=== PATIENT | male | born 1975 | race Caucasian/White ===

== ENCOUNTER 2018-06-25 12:13 | Observation (INO) ==
[2018-06-25 14:10] LABS: Bilirubin,Urine Small (Negative); Blood,Urine Negative (Negative); Clarity,Urine Clear (Clear); Color,Urine Dark Yellow (Yellow); Glucose,Urine (UA) Normal (Normal); Ketones,Urine Trace mg/dL (Negative); Leukocyte Esterase,Urine Negative (Negative); Nitrite,Urine Negative (Negative); PH,Urine 5.5 pH Units (5.0-8.0); Protein,Urine Trace mg/dL (Neg-Trace); Specific Gravity,Urine 1.027 (1.010-1.025); Urobilinogen,Urine Normal (Normal)
[2018-06-25 14:38] LABS: Basophils % 0.2 %; Eosinophils # 0.2 K/mcL (0.0-0.6); Eosinophils % 1.8 %; Hematocrit 48.9 % (37.5-50.1); Hemoglobin 16.6 g/dL (12.9-16.9); Immature Granulocytes % 0.1 % (0-4); Lymphocytes % 33.1 %; Mean Corpuscular HGB Conc 33.9 g/dL (31.6-35.5); Mean Corpuscular Hemoglobin 29.6 pg (28.0-33.3); Mean Corpuscular Volume 87.3 fL (83.0-100.0); Mean Platelet Volume 9.8 fL (9.4-12.4); Monocytes # 0.5 K/mcL (0.0-1.3); Neutrophils # 5.3 K/mcL (1.6-8.9); Platelet Count 286 K/mcL (140-400); Red Cell Distribution Width 13.1 % (11.5-14.5); Segmented Neutrophils % 59.8 %
--- NOTE | 2018-06-25 14:44 | Emergency Department Note ---
Disposition Clinical Impression: Acute appendicitis Qualifiers: Acute appendicitis type: with localized peritonitis Appendicitis gangrene presence: without gangrene Appendicitis perforation presence: without perforation Appendicitis abscess presence: without abscess Qualified Code(s): K35.30 - Acute appendicitis with localized peritonitis, without perforation or gangrene Disposition: Admitted As Inpatient Condition: Good Abdominal Pain HPI - General Chief Complaint: ED Abdominal Pain Stated Complaint: RLQ Pain Time Seen by Provider: 06/25/18 13:47 Source: patient Mode of arrival: private vehicle Limitations: no limitations Nursing Notes Reviewed: Yes Vital Signs Reviewed: Yes - History of Present Illness HPI Narrative: 43-year-old male presents to the ER with a complaint of abdominal pain. Reports the pain started abruptly today. It is in his right lower quadrant. Feels like it goes over to the left. Denies any nausea vomiting or diarrhea. No dysuria, hematuria or discharge. No pain into the testicles. States that he has had this roughly 5 times in the last 2 years and usually goes away around 12 hours later with some ibuprofen. He also goes on to say that he had chest pain several weeks ago. There was a pain in the center of his chest on away after an hour. He also goes on to say that he had dizziness a few days ago that resolved with any felt today when he was moving around here. He also reports pain in his left flank as well as concerns that he might have liver issues because his brother has hepatitis C. No other complaints. Pt Subjective Complaint: abdominal pain Onset (ago): hour(s) Location: RLQ Pain Scale: 8 Migration to: no migration Improves with: nothing Worsens with: nothing Context: history of similar episodes Associated symptoms: Denies: nausea, vomiting, diarrhea, fever, dysuria, hematuria Treatments prior to arrival: none - Related Data Previous Rx's Medication Instructions Recorded Cyclobenzaprine [Flexeril] 10 mg PO TID PRN #14 tablet 05/08/16 Allergies Allergy/AdvReac Type Severity Reaction Status Date / Time codeine AdvReac Vomiting Verified 05/08/16 19:46 All systems ED: reviewed and negative except as stated. Constitutional: Reports: fever, chills Cardiovascular: Denies: chest pain Gastrointestinal: Reports: abdominal pain. Denies: nausea, vomiting, diarrhea Genitourinary: Denies: dysuria, hematuria, discharge Abdominal Pain PMH - Past Medical History Medical history: Reports: diabetes, hypertension Psychiatric history: Reports: no psych history - Social History Smoking status: Never smoker Alcohol use: Reports: occasionally Drug use: Reports: none Physical Exam - General Limitations: no limitations General appearance: alert, in no apparent distress - Head Head exam: atraumatic, normocephalic, normal inspection - Eye Eye exam: Present: normal appearance - ENT ENT exam: normal exam - Neck Neck exam: Present: normal inspection - Chest Chest inspection: Present: normal inspection, symmetric chest wall rise - Respiratory Respiratory exam: Present: normal lung sounds bilaterally - Cardiovascular Cardiovascular exam: Present: regular rate, normal rhythm, normal heart sounds - Abdominal Exam Abdominal exam: Present: soft, tenderness (Moderate right lower quadrant tenderness). Absent: distention, guarding, rigidity - Extremities Exam Extremities exam: Present: normal inspection, full ROM - Expanded Upper Extremity Exam Shoulder exam: Present: normal inspection, full ROM Arm exam: Present: normal inspection, full ROM Elbow exam: Present: normal inspection, full ROM Forearm/Wrist exam: Present: normal inspection, full ROM Hand exam: Present: normal inspection, full ROM - Expanded Lower Extremity Exam Hip/Pelvis exam: Present: normal inspection, full ROM Upper leg exam: Present: normal inspection, full ROM Knee exam: Present: normal inspection, full ROM Lower leg exam: Present: normal inspection, full ROM Ankle exam: Present: normal inspection, full ROM Foot/toe exam: Present: normal inspection, full ROM - Skin Skin exam: Present: warm, dry Course Course Narrative: Patient seen and examined. Vital signs reviewed. He has multiple complaints here. Plan for CT imaging, labs, EKG, urinalysis. - Reevaluation(s) Reevaluation #1: Discussed results of imaging and labs with patient. Plan to discuss with surgery. Last ate at 11:00. To remain NPO. - Consultations Consultation #1: Case discussed with Dr. Garduno with general surgery. Discussed the patient's history, imaging. Patient is accepted to her service with plans to go to the operating room. Vital Signs Temperature 98.8 F 06/25/18 13:13 Pulse Rate 98 06/25/18 13:13 Respiratory Rate 18 06/25/18 13:13 Blood Pressure 179/106 06/25/18 13:13 O2 Sat by Pulse Oximetry 100 06/25/18 13:13 Temperature 98.8 F 06/25/18 13:13 Pulse Rate 94 06/25/18 15:33 Respiratory Rate 14 06/25/18 15:33 Blood Pressure 143/87 06/25/18 15:33 O2 Sat by Pulse Oximetry 100 06/25/18 15:33 Oxygen Delivery Oxygen Delivery Room Air Abdominal Pain - MDM Narrative Medical decision making narrative: 43-year-old male presenting with right lower quadrant pain found have acute appendicitis by CT read. Labs reviewed and grossly unremarkable. His EKG is sinus without ischemic or arrhythmic findings. Patient given IV fluids as well as Zofran. Case discussed with general surgery. The patient is admitted to their service for definitive management. - Lab Data Lab results reviewed: Yes I reviewed the patient's lab results. Result diagrams: 06/25/18 13:17 06/25/18 13:17 Lab Results 06/25/18 06/25/18 06/25/18 Range/Units 13:17 13:17 13:55 WBC 8.9 (4.3-11.1) K/mcL RBC 5.60 H (4.19-5.50) M/mcL Hgb 16.6 (12.9-16.9) g/dL Hct 48.9 (37.5-50.1) % MCV 87.3 (83.0-100.0) fL MCH 29.6 (28.0-33.3) pg MCHC 33.9 (31.6-35.5) g/dL RDW 13.1 (11.5-14.5) % Plt Count 286 (140-400) K/mcL MPV 9.8 (9.4-12.4) fL Immature Gran % 0.1 (0-4) % Seg Neutrophils % 59.8 % Lymphocytes % 33.1 % Monocytes % 5.0 % Eosinophils % 1.8 % Basophils % 0.2 % Neutrophils # 5.3 (1.6-8.9) K/mcL Lymphocytes # 3.0 (0.6-4.6) K/mcL Monocytes # 0.5 (0.0-1.3) K/mcL Eosinophils # 0.2 (0.0-0.6) K/mcL Basophils # 0.0 (0.0-0.2) K/mcL PT (9.4-12.1) Seconds INR Sodium 136 (136-145) mEq/L Potassium 3.3 L (3.5-5.1) mEq/L Chloride 100 (98-107) mEq/L Carbon Dioxide 30 H (23-29) mEq/L BUN 14 (6-20) mg/dL Creatinine 1.03 (0.70-1.30) mg/dL Est GFR ( Amer) > 60 (> 60) Est GFR (Non-Af Amer) > 60 (> 60) BUN/Creatinine Ratio 14 (6-26) Glucose 121 H (70-105) mg/dL Calculated Osmolality 284 (280-300) Calcium 9.7 (8.6-10.3) mg/dL Total Bilirubin 0.5 (0.3-1.0) mg/dL Direct Bilirubin 0.1 (0.0-0.2) mg/dL Indirect Bilirubin 0.4 (0.0-1.2) mg/dL AST 17 (13-39) Units/L ALT 27 (7-52) Units/L Alkaline Phosphatase 61 (34-104) Units/L Serum Total Protein 7.6 (6.4-8.9) g/dL Albumin 4.1 (3.5-5.7) g/dL Globulin 3.5 (2.4-3.5) g/dL Albumin/Globulin Ratio 1.2 (1.1-2.2) Amylase 440 H (29-103) Units/L Lipase 21 (11-82) Units/L Urine Color Dark Yellow (Yellow) Urine Clarity Clear (Clear) Urine pH 5.5 (5.0-8.0) pH Units Ur Specific [place] 1.027 H (1.010-1.025) Urine Protein Trace (Neg-Trace) mg/dL Urine Glucose (UA) Normal (Normal) mg/dL Urine Ketones Trace H (Negative) mg/dL Urine Blood Negative (Negative) Urine Nitrite Negative (Negative) Urine Bilirubin Small H (Negative) Urine Urobilinogen Normal (Normal) mg/dL Ur Leukocyte Esterase Negative (Negative) Ur Culture Indicated? NO (NO) 06/25/18 Range/Units Unknown WBC (4.3-11.1) K/mcL RBC (4.19-5.50) M/mcL Hgb (12.9-16.9) g/dL Hct (37.5-50.1) % MCV (83.0-100.0) fL MCH (28.0-33.3) pg MCHC (31.6-35.5) g/dL RDW (11.5-14.5) % Plt Count (140-400) K/mcL MPV (9.4-12.4) fL Immature Gran % (0-4) % Seg Neutrophils % % Lymphocytes % % Monocytes % % Eosinophils % % Basophils % % Neutrophils # (1.6-8.9) K/mcL Lymphocytes # (0.6-4.6) K/mcL Monocytes # (0.0-1.3) K/mcL Eosinophils # (0.0-0.6) K/mcL Basophils # (0.0-0.2) K/mcL PT 12.9 H (9.4-12.1) Seconds INR 1.1 Sodium (136-145) mEq/L Potassium (3.5-5.1) mEq/L Chloride (98-107) mEq/L Carbon Dioxide (23-29) mEq/L BUN (6-20) mg/dL Creatinine (0.70-1.30) mg/dL Est GFR ( Amer) (> 60) Est GFR (Non-Af Amer) (> 60) BUN/Creatinine Ratio (6-26) Glucose (70-105) mg/dL Calculated Osmolality (280-300) Calcium (8.6-10.3) mg/dL Total Bilirubin (0.3-1.0) mg/dL Direct Bilirubin (0.0-0.2) mg/dL Indirect Bilirubin (0.0-1.2) mg/dL AST (13-39) Units/L ALT (7-52) Units/L Alkaline Phosphatase (34-104) Units/L Serum Total Protein (6.4-8.9) g/dL Albumin (3.5-5.7) g/dL Globulin (2.4-3.5) g/dL Albumin/Globulin Ratio (1.1-2.2) Amylase (29-103) Units/L Lipase (11-82) Units/L Urine Color (Yellow) Urine Clarity (Clear) Urine pH (5.0-8.0) pH Units Ur Specific [place] (1.010-1.025) Urine Protein (Neg-Trace) mg/dL Urine Glucose (UA) (Normal) mg/dL Urine Ketones (Negative) mg/dL Urine Blood (Negative) Urine Nitrite (Negative) Urine Bilirubin (Negative) Urine Urobilinogen (Normal) mg/dL Ur Leukocyte Esterase (Negative) Ur Culture Indicated? (NO) - Radiology Data Radiology results reviewed: Yes I reviewed the patient's radiology results. Abdomen/Pelvis CT 06/25/18 14:35 IMPRESSION: 1. Suboptimal evaluation without the administration of IV contrast, however the constellation of findings is very suspicious; probable acute appendicitis. 2. Shotty lymph nodes in the abdomen are very likely reactive. 3. Hepatic steatosis with mild hepatomegaly. D/ / Navjot Kumar / Navjot Kumar Interpreting Provider: Navjot Kumar - EKG Data EKG attestation: Yes I reviewed and interpreted this EKG. EKG results narrative: EKG demonstrates sinus rhythm with a rate of 97 beats or minute. Normal axis. Normal intervals. Normal R-wave progression. No gross ST elevations or depressions. No acute ischemic findings. Attestation Statement - Attestation Attestation: Resident Attestation: I examined this patient and my medical decision making was reviewed with the Resident Physician. I agree with the documented findings, disposition and treatment plan as described except to the extent set forth below. We independently had [id number] contact with the patient. Patient presenting for evaluation of right-sided abdominal pain. Patient states previous symptoms in the past. Overall on exam the patient has significant right lower quadrant tenderness with associated positive rising sign. Patient undergoing further evaluation for appendicitis. Noncontrast CT scan secondary to rather acute onset and previous episodes in the past. Overall picture was not initially clear. CT scan results returned concerning for early appendicitis. Surgery contacted. Patient admitted to the surgery service.
[2018-06-25] MEDS ORDERED: Ketorolac 15 MG/ML VIAL IVP ONE (14:49)
[2018-06-25 14:57] LABS: Alanine Aminotransferase 27 Units/L (7-52); Albumin 4.1 g/dL (3.5-5.7); Albumin/Globulin Ratio 1.2 (1.1-2.2); Alkaline Phosphatase 61 Units/L (34-104); Amylase 440 Units/L (29-103); Aspartate Amino Transferase 17 Units/L (13-39); BUN/Creatinine Ratio 14 (6-26); Bilirubin,Direct 0.1 mg/dL (0.0-0.2); Bilirubin,Indirect 0.4 mg/dL (0.0-1.2); Bilirubin,Total 0.5 mg/dL (0.3-1.0); Blood Urea Nitrogen 14 mg/dL (6-20); Calcium 9.7 mg/dL (8.6-10.3); Carbon Dioxide 30 mEq/L (23-29); Chloride 100 mEq/L (98-107); Globulin 3.5 g/dL (2.4-3.5); Glucose 121 mg/dL (70-105); Lipase 21 Units/L (11-82); Osmolality,Calculated 284 (280-300); Potassium 3.3 mEq/L (3.5-5.1); Sodium 136 mEq/L (136-145); Total Protein 7.6 g/dL (6.4-8.9); eGFR For Non-African Americans > 60 (> 60)
[2018-06-25] MEDS ORDERED: Piperacillin/Tazobactam 3.375 GM in Water for inj. (sterile) 20 ML 20 ML IVP ONE (16:08)
[2018-06-25] MEDS ORDERED: 0.9 % Sodium Chloride 1,000 ML IVC ONE (16:21)
[2018-06-25 16:36] LABS: INR 1.1; Prothrombin Time 12.9 Seconds (9.4-12.1)
--- NOTE | 2018-06-25 17:08 | General Surg History&Physical ---
Date of Encounter: 06/25/18 Time of Encounter: 17:04 Assessment and Plan (1) Acute appendicitis Current Visit: Yes Status: Acute The assessment and plan as outlined above was discussed with the patient and/or family members who expressed understanding and agreement. All questions were answered. Discussed with patient that given his symptoms, CT scan and PE findings he has acute appendicitis. Discussed I do not recommend him going home and returning tomorrow. Discussed risk of perforation, abscess, sepsis. Will plan laparoscopic appendectomy, possible open ,risks and benefits discussed and he wishes to proceed. npo pain control ivf hydration antibiotics prn antiemetics Qualifiers: Acute appendicitis type: with localized peritonitis Appendicitis gangrene presence: without gangrene Appendicitis perforation presence: without perforation Appendicitis abscess presence: without abscess Qualified Code(s): K35.30 - Acute appendicitis with localized peritonitis, without perforation or gangrene History of Present Illness Chief complaint: RLQ pain HPI: Mr. Heard is a 43 year old male who comes in with complaints of RLQ pain that started in the last 24 hrs. Patient states he has had the exact same pain symptoms 6-7 times over the last 2 years. He states the pain usually starts out as a terrible RLQ pain, after several hours goes away/gets better. Then he is sore over the next 10 hours until it resolves. He states the reason he came to the ED today is because he just wanted to know finally what is causing the pain, and yes it was a little worse this time. He took ibprofen for the pain and it has helped. No nausea or vomiting. No diarrhea. Denies dysuria. Is having LLQ pain as well, just not as severe as the RLQ pain. Denies fevers or chills. No fmh crohns, no melena or hematochezia. States he would like to go home and come back tomorrow. Previous umbilical hernia repair with mesh Past Med Surg Social Fam HX - Past Medical History Source: patient Medical history: diabetes, hypertension Psychiatric history: anxiety, depression - Past Surgical History Surgical History: herniorrhaphy (umbilical with mesh, open), other (Lt ear myringotomy tube) - Social History Smoking Status: Never smoker Smokeless Tobacco Status: No Alcohol use: heavy Drug use: none Occupational status: unemployed Current living situation: Home - Independent Activity Level: Independent ambulation Medications and Allergies Cyclobenzaprine [Flexeril] 10 mg PO TID PRN #14 tablet 05/08/16 [Rx] Allergy/AdvReac Type Severity Reaction Status Date / Time codeine AdvReac Vomiting Verified 05/08/16 19:46 Review of Systems All systems PM: reviewed and no additional remarkable complaints except as stated All systems PM: The remainder of the systems were reviewed and are negative General Surgery Exam Initial Vital Signs Temp Pulse Resp BP Pulse Ox 98.8 F 98 18 179/106 100 06/25/18 13:13 06/25/18 13:13 06/25/18 13:13 06/25/18 13:13 06/25/18 13:13 - General physical appearance well developed, well nourished, no distress - Eyes PERRL, normal ocular movement - ENT normal mucosa, normocephalic - Neck trachea midline - Respiratory normal expansion, clear to auscultation - Cardiovascular Cardiovascular exam: Present: RRR - Abdomen Abdomen general surgery: Present: bowel sounds present, soft, tender. Absent: distended, guarding, rebound Abdominal Tenderness: Present: RLQ - Integumentary Integumentary general surgery: Present: warm and dry - Neurologic Present: CN 2-12 grossly intact - Musculoskeletal Present: normal posture - Psychiatric Psychiatric general surgery: Present: A&Ox3, speech is normal Results - Labs 06/25/18 13:17 06/25/18 13:17 Abnormal lab results RBC 5.60 M/mcL (4.19-5.50) H 06/25/18 13:17 PT 12.9 Seconds (9.4-12.1) H 06/25/18 Unknown Potassium 3.3 mEq/L (3.5-5.1) L 06/25/18 13:17 Carbon Dioxide 30 mEq/L (23-29) H 06/25/18 13:17 Glucose 121 mg/dL (70-105) H 06/25/18 13:17 Amylase 440 Units/L (29-103) H 06/25/18 13:17 Ur Specific [place] 1.027 (1.010-1.025) H 06/25/18 13:55 Urine Ketones Trace mg/dL (Negative) H 06/25/18 13:55 Urine Bilirubin Small (Negative) H 06/25/18 13:55 Diabetes panel 06/25/18 Range/Units 13:17 Sodium 136 (136-145) mEq/L Potassium 3.3 L (3.5-5.1) mEq/L Chloride 100 (98-107) mEq/L Carbon Dioxide 30 H (23-29) mEq/L BUN 14 (6-20) mg/dL Creatinine 1.03 (0.70-1.30) mg/dL Glucose 121 H (70-105) mg/dL Calcium 9.7 (8.6-10.3) mg/dL AST 17 (13-39) Units/L ALT 27 (7-52) Units/L Alkaline Phosphatase 61 (34-104) Units/L Albumin 4.1 (3.5-5.7) g/dL Calcium panel 06/25/18 Range/Units 13:17 Calcium 9.7 (8.6-10.3) mg/dL Albumin 4.1 (3.5-5.7) g/dL Pituitary panel 06/25/18 Range/Units 13:17 Sodium 136 (136-145) mEq/L Potassium 3.3 L (3.5-5.1) mEq/L Chloride 100 (98-107) mEq/L Carbon Dioxide 30 H (23-29) mEq/L BUN 14 (6-20) mg/dL Creatinine 1.03 (0.70-1.30) mg/dL Glucose 121 H (70-105) mg/dL Calcium 9.7 (8.6-10.3) mg/dL Adrenal panel 06/25/18 Range/Units 13:17 Sodium 136 (136-145) mEq/L Potassium 3.3 L (3.5-5.1) mEq/L Chloride 100 (98-107) mEq/L Carbon Dioxide 30 H (23-29) mEq/L BUN 14 (6-20) mg/dL Creatinine 1.03 (0.70-1.30) mg/dL Glucose 121 H (70-105) mg/dL Calcium 9.7 (8.6-10.3) mg/dL Total Bilirubin 0.5 (0.3-1.0) mg/dL AST 17 (13-39) Units/L ALT 27 (7-52) Units/L Alkaline Phosphatase 61 (34-104) Units/L Albumin 4.1 (3.5-5.7) g/dL All other labs normal. - Imaging CT scan - abdomen: report reviewed, image reviewed CT scan - pelvis: report reviewed, image reviewed
[2018-06-25] MEDS ORDERED: Ondansetron 4 MG/2 ML VIAL ONE (17:13)
[2018-06-25] MEDS ORDERED: Lidocaine -MPF 2% 2 ML VIAL ONE (17:13)
[2018-06-25] MEDS ORDERED: *HR* Propofol 200 MG/20 ML VIAL IVP ONE ×2 (17:13→18:31)
[2018-06-25] MEDS ORDERED: *HR* Succinylcholine 200 MG/10 ML VIAL IVP ONE (17:13)
[2018-06-25] MEDS ORDERED: *HR* FentaNYL (PF) 100 MCG/2 ML VIAL ONE (17:13)
[2018-06-25] MEDS ORDERED: *HR* Rocuronium Bromide 50 MG/5 ML VIAL ONE (17:16)
[2018-06-25] MEDS ORDERED: Dexamethasone 4 MG/ML VIAL ONE (17:17)
--- NOTE | 2018-06-25 17:18 | Anesthesia Evaluation PreOp ---
Date of Encounter: 06/25/18 Time of Encounter: 17:34 - Past History Planned Operation: Laparoscopic Appendectomy Cardiac History: HTN (not being medically treated) Pulmonary History: Denies Any Significant HX CARDIAC NURSE History: Denies Any Significant HX Other Medical History: Diabetes Type II (not being medically treated), GERD, Other (anxiety) Anesthesia History: No Prior Anesthetic Complications, Past Anesthesia Alcohol Use: heavy Drug use: none Medications and Allergies Cyclobenzaprine [Flexeril] 10 mg PO TID PRN #14 tablet 05/08/16 [Rx] Allergy/AdvReac Type Severity Reaction Status Date / Time codeine AdvReac Vomiting Verified 05/08/16 19:46 - Meds/Allergy Pre-op Review Medications Reviewed: Yes Allergies Reviewed: Yes Beta Blockers on Current Med List: No Anesthesia Results - Labs 06/25/18 13:17 06/25/18 13:17 Anesthesia Exam Vital Signs/O2 Sat, Most Current Temp Pulse Resp BP Pulse Ox 98.8 F 94 14 143/87 100 06/25/18 13:13 06/25/18 15:33 06/25/18 15:33 06/25/18 15:33 06/25/18 15:33 Height: 5'10"/1.78m Weight: 215 lbs/97.5 kg NPO (# of Hours): 6 Pain Scale: 7 Pain Scale Used: Numeric (1 - 10) - HEENT Pupil (Motor): EOMI Mallampati: II Teeth: Normal Oral Opening: Greater than 3 - CARDIAC NURSE LOC: Oriented CARDIAC NURSE Motor: Normal RUE, Normal LUE, Normal RLE, Normal LLE, Normal Face CARDIAC NURSE Sensory: Normal: RUE, LUE, RLE, LLE, Face - Cardiac Rhythm: Regular Murmur: None - Pulmonary Breath Sounds: bilateral Clear Respiratory Effort: Symmetrical Anesthesia Assess/Plan ASA Score: 3, E Level of consciousness: Cooperative, Oriented, Tranquil Anesthetic Plan: General Monitoring Plan: Standard Monitors Recovery Plan: PACU
[2018-06-25] MEDS ORDERED: KETAMINE HCL 50 MG/ML SYRINGE IV ONE (17:19)
[2018-06-25] MEDS ORDERED: Lidocaine TOPICAL Soln 50 ML BOTTLE ONE (17:19)
[2018-06-25] MEDS ORDERED: *HR* Midazolam HCl 5 MG/5 ML VIAL IVP ONE (17:21)
--- NOTE | 2018-06-25 17:27 | Operative Note ---
Date of procedure: 06/25/18 Pre-op diagnosis: acute appendicitis Post-op diagnosis: same Complications: none immediate Anesthesia: DYLLAN Co-Surgeon: Guerita Garduno Was there an human resources office assistant present: No Estimated blood loss (cc): 5 Specimen: appendix Condition: stable Disposition: PACU Procedure in Detail: The patient was brought into the operating suite and placed supine on the operating table. Sign-in was performed and everyone was in agreement. Anesthesia was induced and patient was endotracheally intubated by anesthesia without incident. An OG tube was placed by anesthesia. The abdomen was prepped and draped in the usual sterile fashion. A timeout was performed and again everyone was in agreement. A stab incision in the left upper quadrant was made with 11 blade and a Veress needle was placed through this and water drop test confirmed placement. Due to patient's previous umbilical hernia repair with mesh in incision several centimeters superior through the skin and the subcutaneous tissues made with 11 blade. We entered the abdomen at the site with the 5 mm 0 degree laparoscope on a 5 mm XL trocar. The area under entry was visualized and there was no bleeding and no apparent bowel injury. We placed a suprapubic 5 mm port under direct visualization after first incising the skin with an 11 blade. The laparoscope was placed through this and we exchanged the supraumbilical port for a 12 mm port under direct visualization. We then placed another 5 mm port in the left lower quadrant position under direct visualization after first incising the skin with an 11 blade. The patient was placed in slight Trendelenburg left side down position. The cecum was located as was the appendix. There was infected purulent fluid/pus around the cecum. The appendix was grasped and retracted anteriorly and caudally with a laparoscopic [place]. A [place] was used to dissect between the mesoappendix and the appendix at the base of the cecum. The mesoappendix was transected with a laparoscopic flex-ex ETS stapler using a white load. The appendix was trans ected at the base of the cecum with the same stapler utilizing a white load. The appendix was placed in a laparoscopic Endo Catch bag and removed via the supraumbilical incision site. Both staple lines were evaluated and there was no bleeding and both staple lines were intact. The RLQ and pelvis was irrigated with sterile saline which was then suctioned free from the abdomen. The insufflation was suctioned free from the abdomen and all trochars removed. We closed the abdominal wall at the supraumbilical incision site with an 0 Vicryl [id number] stitch. A 30 cc of 0.5% Marcaine was injected subcutaneously at the 3 port sites. The skin at the two 5 mm port sites was closed with 4-0 Monocryl interrupted subcuticular stitches. The skin at the supraumbilical incision site was closed with a 4-0 Monocryl running subcuticular stitch. Steri-Strips were applied to the wounds. The patient was extubated in the OR and tolerated the procedure well and was taken to PACU after all lap and instrument counts were correct at the end of the case.
[2018-06-25] MEDS ORDERED: *HR* HYDROmorphone (PF) 1 MG/ML SYRINGE IVP PRN (17:36)
[2018-06-25] MEDS ORDERED: *HR* OxyCODONE Immed Rel 5 MG TABLET PO PRN (17:36)
[2018-06-25] MEDS ORDERED: Acetaminophen IV 1,000 MG/100 ML INFUS..BTL ONE (17:38)
[2018-06-25] MEDS ORDERED: *HR* HYDROMORPHONE 2 MG/ML VIAL ONE (18:24)
[2018-06-25] MEDS ORDERED: Neostigmine Methylsulfate 3 MG/3 ML SYRINGE ONE (18:28)
--- NOTE | 2018-06-25 19:43 | Anesthesia Evaluation Post Op ---
Date of Encounter: 06/25/18 Time of Encounter: 19:40 - Vital Signs Vital Signs: Vital Signs/O2 Sat, Most Current Temp Pulse Resp BP Pulse Ox 100.7 F H 104 20 147/91 96 06/25/18 19:34 06/25/18 19:34 06/25/18 19:34 06/25/18 19:34 06/25/18 19:34 - Lungs Lungs: Clear Ascult./Percussion - Airway Airway: Non-obstructed - Cardiovascular Regular Rate, Baseline Rhythm - Mental Status Mental Status: Alert & Oriented, Answers Appropriately - Pain Pain Scale: 0 Pain Scale used: Numeric (1 - 10) - Nausea Vomiting Nausea Vomiting: Not Present - Hydration Hydration: Tolerates oral liquids, Ice chips, Has not voided - Discharge PostOp Status: Transfer Patient to floor
[2018-06-25] MEDS ORDERED: *HR* LORazepam 2 MG/ML VIAL IVP PRN (19:49)
[2018-06-25] MEDS ORDERED: Naloxone 0.4 MG/ML INJ IVP PRN (19:49)
[2018-06-25] MEDS ORDERED: OXYCODONE Oral CONC 10 MG/0.5 ML ORAL.SYG SL PRN (19:49)
[2018-06-25] MEDS ORDERED: *HR* Metoprolol 5 MG/5 ML VIAL IVP PRN (19:49)
[2018-06-25] MEDS ORDERED: *HR* OxyCODONE/APAP 5/325 TABLET PO PRN (19:49)
[2018-06-25] MEDS ORDERED: 0.9 % Sodium Chloride 1,000 ML IVC SCH (19:49)
[2018-06-25] MEDS: Piperacillin/Tazobactam 3.375 GM in 0.9 % Sodium Chloride Mini Bag 100 ML IVPB SCH (23:57)
[2018-06-26 05:26] LABS: Basophils % 0.1 %; Hematocrit 46.2 % (37.5-50.1); Hemoglobin 16.3 g/dL (12.9-16.9); Immature Granulocytes % 0.3 % (0-4); Lymphocytes # 1.1 K/mcL (0.6-4.6); Lymphocytes % 8.6 %; Mean Corpuscular HGB Conc 35.3 g/dL (31.6-35.5); Mean Corpuscular Hemoglobin 30.4 pg (28.0-33.3); Mean Corpuscular Volume 86.2 fL (83.0-100.0); Mean Platelet Volume 9.9 fL (9.4-12.4); Monocytes # 0.2 K/mcL (0.0-1.3); Monocytes % 1.7 %; Neutrophils # 11.8 K/mcL (1.6-8.9); Platelet Count 285 K/mcL (140-400); Red Blood Count 5.36 M/mcL (4.19-5.50); Red Cell Distribution Width 13.2 % (11.5-14.5); Segmented Neutrophils % 89.3 %
[2018-06-26 05:32] VITALS: BP 126/80
[2018-06-26 08:03] LABS: BUN/Creatinine Ratio 13 (6-26); Blood Urea Nitrogen 11 mg/dL (6-20); Calcium 9.8 mg/dL (8.6-10.3); Carbon Dioxide 26 mEq/L (23-29); Chloride 103 mEq/L (98-107); Glucose 222 mg/dL (70-105); Osmolality,Calculated 286 (280-300); Potassium 4.2 mEq/L (3.5-5.1); Sodium 135 mEq/L (136-145); eGFR For Non-African Americans > 60 (> 60)
[2018-06-26] MEDS: Piperacillin/Tazobactam 3.375 GM in 0.9 % Sodium Chloride Mini Bag 100 ML IVPB SCH (08:04)
[2018-06-26] MEDS ORDERED: Pantoprazole 40 MG VIAL IVP SCH (09:00)
[2018-06-26] MEDS ORDERED: clonazePAM 1 MG TABLET PO ONE (09:28)
--- NOTE | 2018-06-26 09:32 | Discharge Summary ---
<VíctorCharo Velázquez - Last Filed: 06/26/18 09:29> Orders not resulted at time of discharge: Pending orders 06/25/18 14:43 ECG 12 lead ECG [ECG] Stat 06/25/18 18:58 Surgical Pathology [PTH] Routine Date of Encounter: 06/26/18 Time of Encounter: 09:33 - Discharge Diagnosis (1) Acute appendicitis Priority: Primary Status: Resolved Qualifiers: Acute appendicitis type: with localized peritonitis Appendicitis gangrene presence: without gangrene Appendicitis perforation presence: without perforation Appendicitis abscess presence: without abscess Qualified Code(s): K35.30 - Acute appendicitis with localized peritonitis, without perforation or gangrene General Surgery Exam Initial Vital Signs Temp Pulse Resp BP Pulse Ox 98.8 F 98 18 179/106 100 06/25/18 13:13 06/25/18 13:13 06/25/18 13:13 06/25/18 13:13 06/25/18 13:13 - General physical appearance well nourished, no distress, no pain - Respiratory normal expansion, normal respiratory effort, clear to auscultation - Cardiovascular Cardiovascular exam: Present: RRR - Abdomen Abdomen general surgery: Present: bowel sounds present, soft, tender (Specter postoperative) - Incision Incision: Present: clean and dry, intact - Integumentary Integumentary general surgery: Present: warm and dry, no abnormal pigmentation - Neurologic Present: CN 2-12 grossly intact, normal coordination, normal sensation - Musculoskeletal Present: normal gait, normal posture - Psychiatric Psychiatric general surgery: Present: appropriate, oriented to person, oriented to place, oriented to time, speech is normal, memory intact - Hospital Course Hospital course: Mr. Heard is a 43 year old male who presented on 06/25/2018 for right lower quadrant pain. His assessment and imaging were consistent with acute appendicitis. He was taken to the operating room where he underwent an uncomplicated laparoscopic appendectomy. He was noted to have pus in the abdomen per operative note. He states his abdominal discomfort has nearly completely resolved. His white blood cell count is slightly elevated which is most likely consistent with reactionary process as it was normal prior to surgery. He has been treated with IV antibiotics and is anxious to be discharged home. He is ambulating avoiding without difficulty, tolerating a diet without nausea or vomiting, vital signs are stable, and he is afebrile. We will begin discharge planning to home with a follow-up in 2 weeks. He is advised showed a develop a fever higher than 100.5, increase in abdominal pain or drainage from the surgery sites to notify the office or return to the hospital. - Time Spent with Patient Total time spent providing and/or coordinating discharge services: - Discharge Medications Prescriptions: New Ondansetron ODT [Zofran ODT] 4 mg SL Q4HR PRN #15 tab.rapdis PRN Reason: Postsurgical nausea RX: Ciprofloxacin [Cipro] 500 mg PO BID 10 Days #20 tablet Docusate Sodium [Colace] 100 mg PO BID PRN #30 capsule PRN Reason: Constipation RX: HYDROcodone/Acet 5/325 mg [[place] 5-325 mg] 1 tab PO Q6H PRN 5 Days #20 tab PRN Reason: Pain RX: metroNIDAZOLE [Flagyl] 500 mg PO TID 10 Days #30 tablet Continue RX: Cyclobenzaprine [Flexeril] 10 mg PO TID PRN #14 tablet PRN Reason: Spasms RX: clonazePAM [Clonazepam] Home Medications: RX: Cyclobenzaprine [Flexeril] 10 mg PO TID PRN #14 tablet 05/08/16 [Rx] Docusate Sodium [Colace] 100 mg PO BID PRN #30 capsule 06/26/18 [Rx] Ondansetron ODT [Zofran ODT] 4 mg SL Q4HR PRN #15 tab.rapdis 06/26/18 [Rx] RX: Ciprofloxacin [Cipro] 500 mg PO BID 10 Days #20 tablet 06/26/18 [Rx] RX: HYDROcodone/Acet 5/325 mg [[place] 5-325 mg] 1 tab PO Q6H PRN 5 Days #20 tab 06/26/18 [Rx] RX: clonazePAM [Clonazepam] 06/26/18 [History] RX: metroNIDAZOLE [Flagyl] 500 mg PO TID 10 Days #30 tablet 06/26/18 [Rx] Allergies/Adverse Reactions: Allergy/AdvReac Type Severity Reaction Status Date / Time codeine AdvReac Vomiting Verified 05/08/16 19:46 Date of admission: 06/25/18 17:21 Primary care physician: PCP NONE Discharging clinician: Guerita Renee) Anticipated date of discharge: 06/26/18 Labs on day of discharge: Labs from last 24 hours 06/26/18 06/26/18 06/26/18 07:26 04:59 04:59 WBC 13.2 H RBC 5.36 Hgb 16.3 Hct 46.2 MCV 86.2 MCH 30.4 MCHC 35.3 RDW 13.2 Plt Count 285 MPV 9.9 Immature Gran % 0.3 Seg Neutrophils % 89.3 Lymphocytes % 8.6 Monocytes % 1.7 Eosinophils % 0.0 Basophils % 0.1 Neutrophils # 11.8 H Lymphocytes # 1.1 Monocytes # 0.2 Eosinophils # 0.0 Basophils # 0.0 PT INR Sodium 135 L Potassium 4.2 D Chloride 103 Carbon Dioxide 26 BUN 11 Creatinine 0.84 Est GFR ( Amer) > 60 Est GFR (Non-Af Amer) > 60 BUN/Creatinine Ratio 13 Glucose 222 H Calculated Osmolality 286 Calcium 9.8 Total Bilirubin Direct Bilirubin Indirect Bilirubin AST ALT Alkaline Phosphatase Serum Total Protein Albumin Globulin Albumin/Globulin Ratio Amylase Lipase Urine Color Urine Clarity Urine pH Ur Specific [place] Urine Protein Urine Glucose (UA) Urine Ketones Urine Blood Urine Nitrite Urine Bilirubin Urine Urobilinogen Ur Leukocyte Esterase Ur Culture Indicated? Specimen Rejected Hemolyzed 06/25/18 06/25/18 06/25/18 Unknown 13:55 13:17 WBC RBC Hgb Hct MCV MCH MCHC RDW Plt Count MPV Immature Gran % Seg Neutrophils % Lymphocytes % Monocytes % Eosinophils % Basophils % Neutrophils # Lymphocytes # Monocytes # Eosinophils # Basophils # PT 12.9 H INR 1.1 Sodium 136 Potassium 3.3 L Chloride 100 Carbon Dioxide 30 H BUN 14 Creatinine 1.03 Est GFR ( Amer) > 60 Est GFR (Non-Af Amer) > 60 BUN/Creatinine Ratio 14 Glucose 121 H Calculated Osmolality 284 Calcium 9.7 Total Bilirubin 0.5 Direct Bilirubin 0.1 Indirect Bilirubin 0.4 AST 17 ALT 27 Alkaline Phosphatase 61 Serum Total Protein 7.6 Albumin 4.1 Globulin 3.5 Albumin/Globulin Ratio 1.2 Amylase 440 H Lipase 21 Urine Color Dark Yellow Urine Clarity Clear Urine pH 5.5 Ur Specific [place] 1.027 H Urine Protein Trace Urine Glucose (UA) Normal Urine Ketones Trace H Urine Blood Negative Urine Nitrite Negative Urine Bilirubin Small H Urine Urobilinogen Normal Ur Leukocyte Esterase Negative Ur Culture Indicated? NO Specimen Rejected 06/25/18 13:17 WBC 8.9 RBC 5.60 H Hgb 16.6 Hct 48.9 MCV 87.3 MCH 29.6 MCHC 33.9 RDW 13.1 Plt Count 286 MPV 9.8 Immature Gran % 0.1 Seg Neutrophils % 59.8 Lymphocytes % 33.1 Monocytes % 5.0 Eosinophils % 1.8 Basophils % 0.2 Neutrophils # 5.3 Lymphocytes # 3.0 Monocytes # 0.5 Eosinophils # 0.2 Basophils # 0.0 PT INR Sodium Potassium Chloride Carbon Dioxide BUN Creatinine Est GFR ( Amer) Est GFR (Non-Af Amer) BUN/Creatinine Ratio Glucose Calculated Osmolality Calcium Total Bilirubin Direct Bilirubin Indirect Bilirubin AST ALT Alkaline Phosphatase Serum Total Protein Albumin Globulin Albumin/Globulin Ratio Amylase Lipase Urine Color Urine Clarity Urine pH Ur Specific [place] Urine Protein Urine Glucose (UA) Urine Ketones Urine Blood Urine Nitrite Urine Bilirubin Urine Urobilinogen Ur Leukocyte Esterase Ur Culture Indicated? Specimen Rejected - Impressions ITS Impressions Abdomen/Pelvis CT 06/25/18 14:35 IMPRESSION: 1. Suboptimal evaluation without the administration of IV contrast, however the constellation of findings is very suspicious; probable acute appendicitis. 2. Shotty lymph nodes in the abdomen are very likely reactive. 3. Hepatic steatosis with mild hepatomegaly. D/ / Navjot Kumar / Navjot Kumar Interpreting Provider: Navjot Kumar - Patient Status Disposition: Home, Self-Care Condition: Good Functional capacity at discharge: independent ambulation Overall status at discharge: patient is progressing back to baseline - Discharge Instructions Instructions: Laparoscopic Appendectomy (DC) Follow Up With: NONE,PCP [Primary Care Provider] - Guerita Garduno MD [Partnered Physician] - 07/11/18 9:35 am Forms: Inpatient Work/School Release Additional Instructions: General Surgical Discharge Instructions 1. No pushing, pulling, or lifting greater than 15 lbs for 2 weeks. 2. You may shower beginning today, but no tub baths, soaking, or swimming for 2 weeks. 3. You may resume driving when you are off narcotics and are safe to react in a car. 4. Take your previously scheduled ibuprofen every 8 hours for discomfort. If this does not relieve discomfort, you may take the as needed [place]. Take narcotics as directed. Do not take more narcotics then directed and do not constanza e your narcotics with any other person. Do not drink alcohol while on narcotics. You should avoid taking narcotics and your Klonopin together. This may make you to sedated. 5. Take stool softeners (Colace) or a water based laxative (Miralax) while taking narcotics. You may hold for loose stools. 6. Report any fevers greater than 100.5F, increase abdominal discomfort, drainage that looks like pus, increased redness or pain at the surgical site, or any vomiting. 7. Report any pain in the calves, shortness of breath, or rapid heartbeat. 8. Follow-up in the office as directed. 9. If you were prescribed antibiotics, do not stop them without talking to your provider. Do not drink alcohol while taking metronidazole. Drinking alcohol while taking metronidazole can cause violent abdominal pain and vomiting. Refrain from alcohol for 48 hours after completing metronidazole. Do not stop antibiotics without talking to your provider. - Diet and Activity Activity: increase activity as tolerated Diet: advance to your usual diet <Guerita Garduno - Last Filed: 06/26/18 13:16> Orders not resulted at time of discharge: Pending orders 06/25/18 18:58 Surgical Pathology [PTH] Routine Date of Encounter: 06/26/18 - Discharge Diagnosis (1) Acute appendicitis Priority: Primary Status: Resolved Qualifiers: Acute appendicitis type: with localized peritonitis Appendicitis gangrene presence: without gangrene Appendicitis perforation presence: without perforation Appendicitis abscess presence: without abscess Qualified Code(s): K35.30 - Acute appendicitis with localized peritonitis, without perforation or gangrene General Surgery Exam Initial Vital Signs Temp Pulse Resp BP Pulse Ox 98.8 F 98 18 179/106 100 06/25/18 13:13 06/25/18 13:13 06/25/18 13:13 06/25/18 13:13 06/25/18 13:13 - General physical appearance well developed, well nourished, no distress, moderate pain - Eyes normal ocular movement - Respiratory normal expansion, normal respiratory effort - Cardiovascular Cardiovascular exam: Present: RRR - Abdomen Abdomen general surgery: Present: bowel sounds present, soft, tender (expected post op tenderness). Absent: guarding, rebound - Incision Incision: Present: clean and dry, intact - Integumentary Integumentary general surgery: Present: warm and dry - Neurologic Present: CN 2-12 grossly intact - Musculoskeletal Present: normal gait - Time Spent with Patient Total time spent providing and/or coordinating discharge services: Date of admission: 06/25/18 17:21 Primary care physician: PCP NONE Labs on day of discharge: Labs from last 24 hours 06/26/18 06/26/18 06/26/18 07:26 04:59 04:59 WBC 13.2 H RBC 5.36 Hgb 16.3 Hct 46.2 MCV 86.2 MCH 30.4 MCHC 35.3 RDW 13.2 Plt Count 285 MPV 9.9 Immature Gran % 0.3 Seg Neutrophils % 89.3 Lymphocytes % 8.6 Monocytes % 1.7 Eosinophils % 0.0 Basophils % 0.1 Neutrophils # 11.8 H Lymphocytes # 1.1 Monocytes # 0.2 Eosinophils # 0.0 Basophils # 0.0 PT INR Sodium 135 L Potassium 4.2 D Chloride 103 Carbon Dioxide 26 BUN 11 Creatinine 0.84 Est GFR ( Amer) > 60 Est GFR (Non-Af Amer) > 60 BUN/Creatinine Ratio 13 Glucose 222 H Calculated Osmolality 286 Calcium 9.8 Total Bilirubin Direct Bilirubin Indirect Bilirubin AST ALT Alkaline Phosphatase Serum Total Protein Albumin Globulin Albumin/Globulin Ratio Amylase Lipase Urine Color Urine Clarity Urine pH Ur Specific [place] Urine Protein Urine Glucose (UA) Urine Ketones Urine Blood Urine Nitrite Urine Bilirubin Urine Urobilinogen Ur Leukocyte Esterase Ur Culture Indicated? Specimen Rejected Hemolyzed 06/25/18 06/25/18 06/25/18 Unknown 13:55 13:17 WBC RBC Hgb Hct MCV MCH MCHC RDW Plt Count MPV Immature Gran % Seg Neutrophils % Lymphocytes % Monocytes % Eosinophils % Basophils % Neutrophils # Lymphocytes # Monocytes # Eosinophils # Basophils # PT 12.9 H INR 1.1 Sodium 136 Potassium 3.3 L Chloride 100 Carbon Dioxide 30 H BUN 14 Creatinine 1.03 Est GFR ( Amer) > 60 Est GFR (Non-Af Amer) > 60 BUN/Creatinine Ratio 14 Glucose 121 H Calculated Osmolality 284 Calcium 9.7 Total Bilirubin 0.5 Direct Bilirubin 0.1 Indirect Bilirubin 0.4 AST 17 ALT 27 Alkaline Phosphatase 61 Serum Total Protein 7.6 Albumin 4.1 Globulin 3.5 Albumin/Globulin Ratio 1.2 Amylase 440 H Lipase 21 Urine Color Dark Yellow Urine Clarity Clear Urine pH 5.5 Ur Specific [place] 1.027 H Urine Protein Trace Urine Glucose (UA) Normal Urine Ketones Trace H Urine Blood Negative Urine Nitrite Negative Urine Bilirubin Small H Urine Urobilinogen Normal Ur Leukocyte Esterase Negative Ur Culture Indicated? NO Specimen Rejected 06/25/18 13:17 WBC 8.9 RBC 5.60 H Hgb 16.6 Hct 48.9 MCV 87.3 MCH 29.6 MCHC 33.9 RDW 13.1 Plt Count 286 MPV 9.8 Immature Gran % 0.1 Seg Neutrophils % 59.8 Lymphocytes % 33.1 Monocytes % 5.0 Eosinophils % 1.8 Basophils % 0.2 Neutrophils # 5.3 Lymphocytes # 3.0 Monocytes # 0.5 Eosinophils # 0.2 Basophils # 0.0 PT INR Sodium Potassium Chloride Carbon Dioxide BUN Creatinine Est GFR ( Amer) Est GFR (Non-Af Amer) BUN/Creatinine Ratio Glucose Calculated Osmolality Calcium Total Bilirubin Direct Bilirubin Indirect Bilirubin AST ALT Alkaline Phosphatase Serum Total Protein Albumin Globulin Albumin/Globulin Ratio Amylase Lipase Urine Color Urine Clarity Urine pH Ur Specific [place] Urine Protein Urine Glucose (UA) Urine Ketones Urine Blood Urine Nitrite Urine Bilirubin Urine Urobilinogen Ur Leukocyte Esterase Ur Culture Indicated? Specimen Rejected - Impressions ITS Impressions Abdomen/Pelvis CT 06/25/18 14:35 IMPRESSION: 1. Suboptimal evaluation without the administration of IV contrast, however the constellation of findings is very suspicious; probable acute appendicitis. 2. Shotty lymph nodes in the abdomen are very likely reactive. 3. Hepatic steatosis with mild hepatomegaly. D/ / Navjot Kumar / Navjot Kumar Interpreting Provider: Navjot Kumar - Attending Attestation I have personally performed a face to face evaluation on this patient. I have reviewed and agree with the care plan. History and Exam by me shows:
[2018-06-26] MEDS ORDERED: Ibuprofen 800 MG TABLET PO ONE (09:52)
--- NOTE | 2018-06-26 21:23 | Electrocardiograph Report ---
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
== END 2018-06-26 13:45 | disposition home or self-care (01) ==
LOC: 3ANU 12:13 → EMEROOARM 12:13 → 3ANU 17:27
PROVIDERS: ADMIT Surgery; ATTEND Surgery